=== PATIENT | male | born 1985 | race Caucasian/White ===

== ENCOUNTER 2024-04-27 10:22 | Outpatient (AMB) | payer OTHER, SELFPAY ==
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
[2024-04-27 10:53] VITALS: BP 124/74; PULSE 76; RESP 13; O2SAT 95; BMI 31.1
== END 2024-04-27 11:37 | disposition home or self-care (01) ==
PROVIDERS: Visit Provider Nurse Practitioner Family
DX: R51.9 Headache, unspecified (principal); M54.2 Cervicalgia; V89.2XXA Person injured in unspecified motor-vehicle accident, traffic, initial encounter; Z04.3 Encounter for examination and observation following other accident; M25.512 Pain in left shoulder; M54.89 Other dorsalgia

== ENCOUNTER → 2024-12-29 14:37 | Outpatient (BNVA) | payer OTHER, SELFPAY | PROVIDERS: Visit Provider Physician Assistant Medical | DX: S71.111A Laceration without foreign body, right thigh, initial encounter (principal); W26.0XXA Contact with knife, initial encounter; Z23 Encounter for immunization | CPT/HCPCS: 12001; 90715; 99203 ==

== ENCOUNTER → 2024-12-31 13:56 | Outpatient (BNVA) | payer OTHER, SELFPAY | PROVIDERS: Visit Provider Physician Assistant Medical | DX: S71.111A Laceration without foreign body, right thigh, initial encounter (principal); W26.0XXA Contact with knife, initial encounter | CPT/HCPCS: 99213 ==

== ENCOUNTER → 2025-01-05 15:17 | Outpatient (BNVA) | payer OTHER, SELFPAY | PROVIDERS: Visit Provider Physician Assistant Medical | DX: Z48.02 Encounter for removal of sutures (principal); S71.111A Laceration without foreign body, right thigh, initial encounter; W26.0XXA Contact with knife, initial encounter; Z02.79 Encounter for issue of other medical certificate | CPT/HCPCS: 99212; 99213 ==